=== PATIENT | female | born 1975 | race Caucasian/White ===

== ENCOUNTER 2019-06-30 15:16 | Emergency (ER) | payer MEDICAID ==
[~2019-06-30] VITALS: Ht 157.5 cm; Wt 56.7 kg
--- NOTE | 2019-06-30 15:46 | NUR ---
PT BIB MOM C/O RLQ ABDOMINAL PAIN SINCE LAST NIGHT. SENT [facility] R/O APPENDICITIS, PT IS AAOX4, NOT IN RESPIRATORY DISTRESS, HOOKED TO MONITOR, KEPT RESTED AND COMFORTABLE, WILL CONTINUE TO MONITOR.
--- NOTE | 2019-06-30 15:58 | NUR ---
SEEN AND EXAMINED BY
[2019-06-30] MEDS ORDERED: IV NS 0.9% 500 ML BAG IV ONE (16:00)
[2019-06-30] MEDS ORDERED: ONDANSETRON HCL/PF 4 MG/2 ML VIAL IVP ONE (16:00)
[2019-06-30] MEDS ORDERED: MORPHINE SULFATE INJ 2 MG/ML DISP.SYRIN IV ONE (16:00)
--- NOTE | 2019-06-30 16:00 | NUR ---
URINE SPECIMEN COLLECTED AND SENT TO LAB.
--- NOTE | 2019-06-30 16:05 | NUR ---
IV LINE ESTABLISHED, BLOOD DRAWN AND SENT TO LAB.
[2019-06-30] MEDS ORDERED: ONDANSETRON HCL/PF 4 MG/2 ML VIAL ONE (16:07)
[2019-06-30 16:11] LABS: BASOPHILS % (AUTO) 0.2 % (0.0-2.0); EOSINOPHILS % (AUTO) 0.2 % (0.0-6.0); HEMATOCRIT 41 % (33-45); HEMOGLOBIN 14.2 g/dL (11.5-14.8); LYMPHOCYTES # (AUTO) 0.8 /CMM (0.8-4.8); LYMPHOCYTES % (AUTO) 9.2 % (20.0-44.0); MEAN CORPUSCULAR HGB CONC 34 g/dl (31.0-36.0); MEAN CORPUSCULAR VOLUME 86 fL (82-100); MONOCYTES # (AUTO) 0.4 /CMM (0.1-1.30); MONOCYTES % (AUTO) 4.6 % (2.0-12.0); NEUTROPHILS # (AUTO) 7.6 /CMM (1.8-8.9); NEUTROPHILS % (AUTO) 85.8 % (43.0-81.0); PLATELET COUNT (AUTO) 156 /CMM (150-450); RED BLOOD CELL COUNT(AUTO) 4.82 MIL/uL (4.0-5.2); WHITE BLOOD COUNT (AUTO) 8.8 K/uL (4.3-11.0)
[2019-06-30 16:17] LABS: APPEARANCE,URINE Clear (CLEAR); BILIRUBIN,URINE Negative (NEGATIVE); BLOOD, URINE Trace-intact Ery/uL (NEGATIVE); COLOR,URINE Yellow (YELLOW); KETONES,URINE Negative (NEGATIVE); LEUKOCYTE ESTERASE ,URINE Negative (NEGATIVE); NITRITE, URINE Negative (NEGATIVE); PH,URINE 6.5 (5.0-8.0); PROTEIN,URINE Negative (NEGATIVE); UGLUCOSE Negative (NEGATIVE); UROBILINOGEN,URINE 0.2 EU/dL (0.2)
[2019-06-30 16:23] LABS: CALCIUM, SERUM 9.3 mg/dL (8.5-10.1); CREATININE 0.7 mg/dL (0.6-1.3); POTASSIUM 3.9 mmol/L (3.5-5.1)
[2019-06-30 16:29] LABS: ALBUMIN 4.1 g/dL (3.4-5.0); BILIRUBIN,DIRECT 0.2 mg/dL (0.0-0.2); BILIRUBIN,TOTAL 1.5 mg/dL (0.2-1.0); TOTAL PROTEIN, SERUM 7.4 g/dL (6.4-8.2)
[2019-06-30 16:31] LABS: BACTERIA,URINE Few /HPF (None Seen); RBC,URINE 0-2 /HPF (0-2); SQUAMOUS EPITHELIAL CELL,UR Few /HPF (None Seen); WBC,URINE 0-2 /HPF (0-3)
--- NOTE | 2019-06-30 16:53 | NUR ---
PT IS BACK FROM THE CT SCAN
[2019-06-30 17:38] VITALS: BP 123/77
--- NOTE | 2019-06-30 17:38 | NUR ---
IV removed. Catheter intact and site benign. Pressure and 4x4 applied to site. No bleeding noted. Patient discharged to home in stable condition. Written and verbal after care instructions given. Patient verbalizes understanding of instruction.
== END 2019-06-30 17:39 | disposition home or self-care (01) ==
LOC: ER 15:21
DX: R10.31 Right lower quadrant pain (principal); G89.29 Other chronic pain; M54.9 Dorsalgia, unspecified; Z98.890 Other specified postprocedural states; Z88.1 Allergy status to other antibiotic agents
CPT/HCPCS: 36415; 74176; 80048; 80076; 81001; 83690; 84703; 85025; 93005; 96374; 99284; J2405; J7040; 81000-TC

== ENCOUNTER 2022-10-22 22:38 | Inpatient (IN) | payer MEDICAID ==
[~2022-10-22] VITALS: Ht 157.5 cm; Wt 56.7 kg
--- NOTE | 2022-10-23 00:20 | NUR ---
BIBHUSBAND FOR EPIGASTRIC ABD PAIN SINCE THIS AM. DX WITH GASTRITIS X3 MONTHS AGO AND PRESCRIBED OMEPRAZOLE WITHOUT SIGNIFICANT RELIEF. SEES GI SPECIALIST AND ENDOSCOPY PERFORMED. PT ENDORSES N/V/D ANS WELL WEAKNESS AND DIZZINESS. AWAKE AND ALERT X4 RR EVEN AND UNLABORED.
--- NOTE | 2022-10-23 00:28 | NUR ---
URINE SENT TO LAB
--- NOTE | 2022-10-23 00:35 | NUR ---
SCIENTIST/ENGINEER AT BEDSIDE
[2022-10-23 01:20] LABS: BASOPHILS # (AUTO) 0.1 K/uL (0.0-0.2); BASOPHILS % (AUTO) 0.9 % (0.0-2.0); EOSINOPHILS % (AUTO) 0.3 % (0.0-6.0); HEMATOCRIT 38 % (33-45); LYMPHOCYTES # (AUTO) 0.4 K/uL (0.8-4.8); LYMPHOCYTES % (AUTO) 5.6 % (20.0-44.0); MEAN CORPUSCULAR HGB CONC 34 g/dl (31.0-36.0); MEAN CORPUSCULAR VOLUME 85 fL (82-100); MONOCYTES # (AUTO) 0.3 K/uL (0.1-1.30); MONOCYTES % (AUTO) 4.7 % (2.0-12.0); NEUTROPHILS # (AUTO) 5.9 K/uL (1.8-8.9); NEUTROPHILS % (AUTO) 88.5 % (43.0-81.0); PLATELET COUNT (AUTO) 149 K/uL (150-450); RED BLOOD CELL COUNT(AUTO) 4.53 MIL/uL (4.0-5.2); WHITE BLOOD COUNT (AUTO) 6.7 K/uL (4.3-11.0)
[2022-10-23 01:25] LABS: BILIRUBIN,URINE NEGATIVE (NEGATIVE); COLOR,URINE YELLOW (YELLOW); LEUKOCYTE ESTERASE ,URINE NEGATIVE (NEGATIVE); NITRITE, URINE NEGATIVE (NEGATIVE); PH,URINE 6.5 (5.0-8.0); PROTEIN,URINE NEGATIVE (NEGATIVE); UGLUCOSE NEGATIVE (NEGATIVE); UROBILINOGEN,URINE 0.2 EU/dL (0.2)
[2022-10-23 01:28] LABS: BACTERIA,URINE Rare /HPF (None Seen); RBC,URINE 0-2 /HPF (0-2); SQUAMOUS EPITHELIAL CELL,UR Few /HPF (None Seen); WBC,URINE 0-2 /HPF (0-3)
[2022-10-23] MEDS ORDERED: MORPHINE SULFATE INJ 2 MG/ML DISP.SYRIN IV ONE (01:30)
[2022-10-23 01:32] LABS: CREATININE 0.6 mg/dL (0.6-1.3); POTASSIUM 3.8 mmol/L (3.5-5.1)
--- NOTE | 2022-10-23 01:35 | NUR ---
PT TO CT W/ TECH
[2022-10-23 01:38] LABS: ALBUMIN 3.8 g/dL (3.4-5.0); BILIRUBIN,DIRECT 0.3 mg/dL (0.0-0.2); BILIRUBIN,TOTAL 1.5 mg/dL (0.2-1.0)
[2022-10-23] MEDS ORDERED: MORPHINE SULFATE INJ 4 MG/ML DISP.SYRIN ONE (01:42)
[2022-10-23] MEDS ORDERED: KETOROLAC TROMETHAMINE INJ 30 MG/ML VIAL ONE (01:59)
[2022-10-23] MEDS ORDERED: KETOROLAC TROMETHAMINE INJ 30 MG/ML VIAL IV ONE (02:00)
--- NOTE | 2022-10-23 03:28 | NUR ---
ADMISSION MOVE SHEET SUBMITTED
[2022-10-23] MEDS ORDERED: FAMOTIDINE/PF INJ 20 MG/2 ML VIAL IV ONE ×2 (03:30→04:01)
--- NOTE | 2022-10-23 04:20 | NUR ---
COVID SWAB COLLECTED; SENT TO LAB
--- NOTE | 2022-10-23 05:45 | NUR ---
DR CHERRY ON PHONE WITH DR SCHMIDT
--- NOTE | 2022-10-23 05:55 | NUR ---
DR CHERRY ON PHONE CALL WITH DR GALLARDO GI CONSULT
--- NOTE | 2022-10-23 07:10 | NUR ---
RECEIVED PT FROM LADY LUZ AWAKE and alert lashaun sob
--- NOTE | 2022-10-23 07:24 | NUR ---
REPORT GIVEN TO ISABELLE LUZ FOR TOLU
--- NOTE | 2022-10-23 07:28 | NUR ---
BED ASSIGNED 309-1
--- NOTE | 2022-10-23 07:43 | NUR ---
HAND OFF IRASEMA LUZ TO ROOM 309-1 VIA SAÚL FRANKLIN AND CONDITION
--- NOTE | 2022-10-23 08:00 | NUR ---
RN NOTE- PT ARRIVED FROM ED FOR DX ABD PAIN. BEGIN ADMISSION PROCESS.
--- NOTE | 2022-10-23 08:01 | NUR ---
CHEMISTRY QUALITY CONTROL TECHNICIAN NOTE- 47 Y/O FEMALE BROUGHT INTO ED BY FAMILY FOR ABDOMINAL PAIN. PT HAS HX OF PERIODIC ABDOMINAL PAIN. PMHX- ABDOMINAL PAIN, PREVIOUS BLOOD CLOT. SHE'S ALLERGIC TO SHELLFISH AND AMOXICILLIN. PT HAS NO COVID VACC OR FLU / PNA VACC HX, VS- BP- 92/54, HR- 88, RR- 20, T- 98.1, 02 SATS 99% RA. PT IS AOX4, INTERACTIVE, MILDLY ANXIOUS SECONDARY TO PAIN. WAS MEDICATED W MSO4 IN ED. STATED IT "MADE ME SICK AND DIZZY". DR MILLER NOTIFIED OF ADMIT AND REQUESTED CHANGE OF ANALGESICS. ABDOMEN- SOFT ,NON TENDER, NON DISTENDED, NO WARMTH AT MCBURNEY'S, NO REBOUND TENDERNESS, BOWEL SOUNDS HYPOACTIVE THROUGHOUT. CHEST CLEAR TO AUSCULTATION, NO RHONCHI, NO RALES. PERIPHERAL PULSES + THROUGHOUT, MOVES ALL EXTREMITIES. AMBULATORY W STEADY GAIT, SKIN INTACT. IV 20G TO LAC. PRILOSEC IS ONLY HOME RX. DR MILLER AWARE OF ADMISSION. SIDE RAILS UP, BED LOCKED, CALL LIGHT CLOSE. MADE COMFORTABLE. WILL CONTINUE TO MONITOR / ASSIST
[2022-10-23 08:30] VITALS: BP 92/59
[2022-10-23] MEDS ORDERED: HYDROMORPHONE 1 MG/1 ML DISP.SYRIN IV PRN (09:00)
[2022-10-23] MEDS: IV D5/ 0.9% NACL 1,000 ML IV SCH (09:27)
[2022-10-23] MEDS ORDERED: LORA10TA68 PO (11:47)
[2022-10-23] MEDS ORDERED: PANT20TA17 PO (11:47)
[2022-10-23 16:00] VITALS: BP 102/68
--- NOTE | 2022-10-23 16:40 | NUR ---
RN NOTE- PT PLACED ON FULL LIQUIDS. RADIOLOGY TOOK PT DOWN FOR ESOPHAGEAL XR
[2022-10-23] MEDS: HYDROCODONE/APAP 5/325MG TABLET PO PRN ×2 (16:54→23:02)
[2022-10-23] MEDS ORDERED: ONDANSETRON HCL/PF 4 MG/2 ML VIAL IV PRN (17:30)
--- NOTE | 2022-10-23 18:31 | NUR ---
RN CLOSING NOTES. PT LAYING IN BED A/OX4 AND NO SOB NOTED. IV ON LEFT AC 20G @ 75ML/HR D5. PT WAS PLACED ON FULL LIQUID DIET. REPORTED NAUSEA WITH GELATIN. ADMINSITERED ZOFRAN PRN. PT COMPLETED XRAY PENDING RESULTS. FAMILY MEMBERS AT BEDSIDE AT THE MOMENT AND REPORTS NO DISTRESS. BED AT LOWEST POSITION, CALL LIGHT WITHIN REACH, AND SIDE RAILS UP X2. WILL DISCLOSE TO MEAL COOK FOR TOLU.
[2022-10-23 20:00] VITALS: BP 89/58
--- NOTE | 2022-10-23 20:48 | NUR ---
RN MS OPENING NOTES RECEIVED PATIENT IN BED AWAKE AND COHERENT, ABLE TO VERBALIZED CONCERNS. ON ROOM AIR SATURATING WELL NO COMPLAIN OF SOB/ NOTED AT THIS TIME. NO PAIN OR DISCOMFORT NOTED AT THIS TIME. ON FULL LIQUID DIET AT THIS TIME. WITH IV ACCESS AT LAC #20G WITH D5NS1L AT 75ML/HR INFUSING WELL NO SWELLING OR INFILTRATION NOTED AT THIS TIME. KEPT BED ON LOWER LOCKED POSITION, KEPT SIDE RAILS UP X 2 ALL, KEPT CALL LIGHT WITHIN AT REACH. KEPT PATIENT WARM AND COMFORTABLE. WILL CONTINUE TO MONITOR.
[2022-10-24] MEDS: IV D5/ 0.9% NACL 1,000 ML IV SCH (00:01)
--- NOTE | 2022-10-24 06:26 | NUR ---
RN MS CLOSING NOTES PATIENT IS IN BED, A/O X 4 ABLE TO VERBALIZED NEEDS AND CONCERNS. ON FULL LIQUID DIET, AMBULATORY CONTINENT WITH BRP. WITH IV ACCESS AT LAC #20G WITH D5NS 1L AT 75ML/HR INFUSING WELL NO SWELLING OR INFILTRATION NOTED AT THIS TIME. FOR GI CONSULT THIS AM, NO PAIN OR DISCOMFORT NOTED AT THIS TIME. ALL DUE MEDICATIONS GIVEN, ALL NEEDS ATTENDED, PM CARE RENDERED. KEPT BED ON LOWER LOCKED POSITION, KEPT SIDE RAILS UP X 2 ALL THE TIME, KEPT CALL LIGHT WITHIN AT REACH. WILL ENDORSED TO NEXT SHIFT FOR TOLU.
[2022-10-24 07:00] VITALS: BP 80/41
--- NOTE | 2022-10-24 07:30 | NUR ---
RN MS OPENING NOTES PATIENT IS IN BED, A/O X 4 ABLE TO VERBALIZED NEEDS AND CONCERNS. ON FULL LIQUID DIET, AMBULATORY CONTINENT WITH BRP. WITH IV ACCESS AT LAC #20G WITH D5NS 1L AT 75ML/HR INFUSING WELL NO SWELLING OR INFILTRATION NOTED AT THIS TIME. FOR GI CONSULT THIS AM, NO PAIN OR DISCOMFORT NOTED AT THIS TIME. ALL DUE MEDICATIONS GIVEN, ALL NEEDS ATTENDED, PM CARE RENDERED. KEPT BED ON LOWER LOCKED POSITION, KEPT SIDE RAILS UP X 2 ALL THE TIME, KEPT CALL LIGHT WITHIN AT REACH. WILL CONTINUE TO MONITOR.
[2022-10-24] MEDS ORDERED: ACETAMINOPHEN 325 MG TABLET PO PRN (10:30)
--- NOTE | 2022-10-24 11:21 | NUR ---
BASKET PATCHER NOTES PT DISCHARGED IN STABLE CONDITION AT 1110. SEEN BY DR MEAD. POST VITALS BP 100/56 ID 83 RR 18 O2 100. HEALTH TEACHINGS AND DISCHARGE INSTRUCTIONS GIVEN. IV ACCESS AND ID BAND REMOVED. ALL BELONGINGS CHECKED. ADVISED TO RETURN TO ER OR CALL 911 INCASE OF EMERGENCY. PT UNDERSTOOD AND LEFT AMBULATORY ACCOMPANIED BY MOTHER. CHARGE NURSE AWARE.
== END 2022-10-24 11:00 | disposition home or self-care (01) | DRG 243 ==
LOC: ER 22:43 → MED 10-23 07:53
PROVIDERS: ADMIT Internal Medicine; ATTEND Internal Medicine
DX: K22.4 Dyskinesia of esophagus (principal); E87.1 Hypo-osmolality and hyponatremia; F32.A Depression, unspecified; F41.0 Panic disorder [episodic paroxysmal anxiety]; Z20.822 Contact with and (suspected) exposure to COVID-19; G56.00 Carpal tunnel syndrome, unspecified upper limb; G89.29 Other chronic pain; Z87.19 Personal history of other diseases of the digestive system; Z88.0 Allergy status to penicillin; Z91.013 Allergy to seafood; F41.9 Anxiety disorder, unspecified
CPT/HCPCS: 36415; 74230-TC; 80048-TC; 80076-TC; 81001; 83690-TC; 84703-TC; 85025-TC; A4223; C9803; G0378; J1170; J1885; J2270; J2405; J3490; J7042